=== PATIENT | female | born 1990 | race Caucasian/White ===

== ENCOUNTER 2016-10-01 08:32 | Emergency (ER) | payer MEDICAID ==
[2016-10-01 08:34] VITALS: BMI 24.1
[2016-10-01 08:36] VITALS: BP 106/65; PULSE 74; RESP 19; TEMP 98.1
[2016-10-01 08:44] VITALS: O2SAT 98
[2016-10-01] MEDS ORDERED: Lactated Ringer's 1,000 ML IV SCH (09:15)
[2016-10-01 09:34] LABS: BASO % 0.2 % (0.0-2.0); EOS % 0.3 % (0.0-4.0); HEMATOCRIT 37.7 % (34.0-47.0); LYMPH # 0.3 K/uL (1.0-4.3); LYMPH % 3.4 % (20.0-40.0); MEAN CELL VOLUME 92.7 fl (81.0-99.0); MEAN CORPUSCULAR HEMOGLOBIN 31.6 pg (27.0-31.0); MEAN CORPUSCULAR HGB CONC 34.1 g/dL (33.0-37.0); MONO # 0.4 K/uL (0.0-0.8); MONO % 4.7 % (0.0-10.0); NEUT # 8.4 K/uL (1.8-7.0); NEUT % 91.4 % (50.0-75.0); PLATELET COUNT 217 K/uL (130-400); RED CELL DISTRIBUTION WIDTH 14.3 % (11.5-14.5); WHITE BLOOD COUNT 9.2 K/uL (4.8-10.8)
[2016-10-01 09:51] LABS: URINE BILIRUBIN NEGATIVE (NEGATIVE); URINE BLOOD NEGATIVE (NEGATIVE); URINE COLOR YELLOW (YELLOW); URINE GLUCOSE (UA) NEG (Normal); URINE KETONE TRACE mg/dL (NEGATIVE); URINE LEUKOCYTE ESTERASE NEG Leu/uL (Negative); URINE PROTEIN NEGATIVE (NEGATIVE); URINE UROBILINOGEN 0.2-1.0 mg/dL (0.2-1.0)
[2016-10-01 09:59] LABS: ALB/GLOB RATIO 1.4 (1.0-2.1); ALKALINE PHOSPHATASE 39 U/L (38-126); ALT/SGPT 24 U/L (9-52); AST/SGOT 25 U/L (14-36); BILIRUBIN,TOTAL 0.5 mg/dl (0.2-1.3); BLOOD UREA NITROGEN 10 mg/dl (7-17); CALCIUM 8.6 mg/dL (8.4-10.2); CARBON DIOXIDE 22 mmol/L (22-30); CHLORIDE 102 mmol/L (98-107); GFR AFRICAN-AMERICAN > 60; GLUCOSE,RANDOM 81 mg/dL (65-105); POTASSIUM 3.9 MMOL/L (3.6-5.0); SODIUM 135 mmol/l (132-148); TOTAL PROTEIN 7.4 G/DL (6.3-8.2)
--- NOTE | 2016-10-01 10:02 | ED PDOC ---
HPI: Abdomen Time Seen by Provider: 10/01/16 09:09 Chief Complaint (Nursing): Abdominal Pain Chief Complaint (Provider): Abdominal Pain History Per: Patient History/Exam Limitations: no limitations Onset/Duration Of Symptoms: Days (x1 day) Additional Complaint(s): 26 y/o female who is currently 8 weeks presents to the emergency department with a complaint of nausea, abdominal pain, vomiting (non bloody; 4 episodes) and diarrhea (non bloody; 4 episodes) x1 day. 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 Denies poorly cooked food. Past Medical History Reviewed: Historical Data, Nursing Documentation, Vital Signs Vital Signs: Last Vital Signs Temp 98.1 F 10/01/16 08:35 Pulse 74 10/01/16 08:35 Resp 19 10/01/16 08:35 BP 106/65 10/01/16 08:35 Pulse Ox 98 10/01/16 12:19 - Medical History PMH: No Chronic Diseases - Surgical History Surgical History: No Surg Hx - Family History Family History: States: Unknown Family Hx - Social History Current smoker - smoking cessation education provided: No Alcohol: None Drugs: Denies - Home Medications Home Medications: Ambulatory Orders Medication Instructions Recorded Ondansetron ODT [Zofran ODT] 1 odt PO BID PRN #6 odt 10/01/16 - Allergies Allergies/Adverse Reactions: Allergies Allergy/AdvReac Type Severity Reaction Status Date / Time Penicillins Allergy URTICARIA Verified 10/01/16 08:42 Review of Systems ROS Statement: Except As Marked, All Systems Reviewed And Found Negative Gastrointestinal: Positive for: Vomiting (4 episodes), Abdominal Pain, Diarrhea (4 episodes) Physical Exam - Reviewed Nursing Documentation Reviewed: Yes Vital Signs Reviewed: Yes - Physical Exam Appears: Positive for: Non-toxic, No Acute Distress Head Exam: Positive for: ATRAUMATIC, NORMOCEPHALIC Skin: Positive for: Normal Color, Warm, Dry Cardiovascular/Chest: Positive for: Regular Rate, Rhythm. Negative for: Murmur Respiratory: Positive for: Normal Breath Sounds. Negative for: Accessory Muscle Use, Respiratory Distress Gastrointestinal/Abdominal: Positive for: Normal Exam, Soft. Negative for: Tenderness Extremity: Positive for: Normal ROM Neurologic/Psych: Positive for: Alert, Oriented - Laboratory Results Result Diagrams: 10/01/16 09:26 10/01/16 09:26 - ECG O2 Sat by Pulse Oximetry: 98 (RA) Pulse Ox Interpretation: Normal Medical Decision Making Medical Decision Making: Time: 9:09 Impression: Gastroenteritis Initial plan: --Will hydrate and check labs --Type and Screen Stat --Beta-HCG, Quantitative --COMP Metabolic Panel --ED Urine (POC) --CBC w/ differential --Lactated ringers 1,000 ml IV 1,000 mls/hr --Urinalysis Stat --Revaluation 12:19 PM Pt feels better. Will d/c home. Scribe Attestation: Documented by Nelia Eugene, acting as a scribe for Balbir Ling MD. Provider Scribe Attestation: All medical record entries made by the Scribe were at my direction and personally dictated by me. I have reviewed the chart and agree that the record accurately reflects my personal performance of the history, physical exam, medical decision making, and the department course for this patient. I have also personally directed, reviewed, and agree with the discharge instructions and disposition. Disposition - Clinical Impression Clinical Impression: Gastroenteritis, - Patient ED Disposition Is Patient to be Admitted: No Counseled Patient/Family Regarding: Studies Performed, Diagnosis, Need For Followup, Rx Given - Disposition Disposition: Routine/Home Disposition Time: 12:15 Condition: IMPROVED Additional Instructions: Ms. Panchal, thank you for letting us take care of you today. Return to the ER if your symptoms worsen, or if any problems. Take the medication listed below as prescribed. Follow up with Dr. Gamble next week for a re-evaluation. Prescriptions: Ondansetron ODT [Zofran ODT] 1 odt PO BID PRN #6 odt PRN Reason: Nausea/Vomiting Instructions: Gastroenteritis (ED) Forms: [employer] (Georgian) Print Language: SAUDI ARABIAN - POA Present On Arrival: None
[2016-10-01 10:21] LABS: EOSINOPHIL 2 % (0-7); NEUTROPHIL 90 % (42-75); TOTAL CELLS COUNTED 100
[2016-10-01 10:22] LABS: LARGE PLATELETS PRESENT
[2016-10-01] MEDS ORDERED: Sodium Chloride 0.9% 1,000 ML IV SCH (10:45)
== END 2016-10-01 12:32 | disposition home or self-care (01) ==
LOC: H.ER 08:32
DX: O21.8 Other vomiting complicating pregnancy (principal); O26.899 Other specified pregnancy related conditions, unspecified trimester; R19.7 Diarrhea, unspecified; K52.9 Noninfective gastroenteritis and colitis, unspecified

== ENCOUNTER 2016-10-26 21:02 | Emergency (ER) | payer MEDICAID ==
[2016-10-26 21:02] VITALS: BMI 24.1
[2016-10-26 21:11] VITALS: BP 114/71; PULSE 73; RESP 16; TEMP 98.1; O2SAT 100
[2016-10-26] MEDS ORDERED: Alum-Mag Hydrox-Simethicone Susp (30 mL) PO STA (21:31)
[2016-10-26] MEDS ORDERED: Alum-Mag Hydrox-Simethicone Susp (30 mL) ONE (21:35)
--- NOTE | 2016-10-26 22:21 | ED PDOC ---
HPI: Abdomen Time Seen by Provider: 10/26/16 21:27 Chief Complaint (Nursing): Abdominal Pain Chief Complaint (Provider): Epigastric Pain History Per: Patient Outside of [place] travel?: No Current Symptoms Are (Timing): Still Present Location Of Pain/Discomfort: Epigastric Exacerbating Factors: Food Additional Complaint(s): Lisa Panchal, a 26 year old female, who is 11 weeks presents to the ED with epigastric pain. The patient states the she has been experiencing these symptoms since 0200 and it gets worse when she eats. She reports that she had an US for done and it was normal. Denies nausea, vomiting, vaginal bleeding and vaginal discharge. PMD: Shaik Brie Abnormal Vaginal Bleeding: No Past Medical History Reviewed: Historical Data, Nursing Documentation, Vital Signs Vital Signs: Last Vital Signs Temp 98.1 F 10/26/16 21:09 Pulse 73 10/26/16 21:09 Resp 16 10/26/16 21:09 BP 114/71 10/26/16 21:09 Pulse Ox 100 10/26/16 22:31 - Medical History PMH: No Chronic Diseases - Family History Family History: States: Unknown Family Hx - Home Medications Home Medications: Ambulatory Orders Medication Instructions Recorded Ondansetron ODT [Zofran ODT] 1 odt PO BID PRN #6 odt 10/01/16 Calcium Carbonate/Simethicone 1 each PO DAILY #20 tab.chew 10/26/16 [Maalox Advanced Tab Chew] Famotidine [Pepcid] 20 mg PO BID #20 tab 10/26/16 - Allergies Allergies/Adverse Reactions: Allergies Allergy/AdvReac Type Severity Reaction Status Date / Time Penicillins Allergy URTICARIA Verified 10/26/16 21:09 Review of Systems ROS Statement: Except As Marked, All Systems Reviewed And Found Negative Gastrointestinal: Negative for: Nausea, Vomiting Genitourinary Female: Negative for: Vaginal Discharge, Vaginal Bleeding Physical Exam - Reviewed Nursing Documentation Reviewed: Yes Vital Signs Reviewed: Yes - Physical Exam Appears: Positive for: Non-toxic, No Acute Distress Head Exam: Positive for: ATRAUMATIC, NORMAL INSPECTION, NORMOCEPHALIC Skin: Positive for: Normal Color, Warm, Dry Eye Exam: Positive for: Normal appearance, EOMI, PERRL ENT: Positive for: Normal ENT Inspection Neck: Positive for: Normal, Painless ROM, Supple Cardiovascular/Chest: Positive for: Regular Rate, Rhythm, Chest Non Tender. Negative for: Tachycardia Respiratory: Positive for: Normal Breath Sounds. Negative for: Wheezing, Respiratory Distress Gastrointestinal/Abdominal: Positive for: Normal Exam, Bowel Sounds, Soft. Negative for: Tenderness Back: Positive for: Normal Inspection Extremity: Positive for: Normal ROM. Negative for: Tenderness, Pedal Edema, Deformity, Swelling Neurologic/Psych: Positive for: Alert, Oriented, Gait - ECG O2 Sat by Pulse Oximetry: 100 (RA) Pulse Ox Interpretation: Normal Medical Decision Making Medical Decision Makin:27 Initial Impression: 26 year old female presenting with gastritis during . Initial Plan: * Upreg * Udip * Lidocaine 2% viscous 15ml PO * Maalox Plus 30ml PO * Pepcid 20mg PO 2230: Pt. feeling much improved, no longer c/o of pain. Told to f/u w/ PMD or OB in 1- 2 days. REturn precautions given. Scribe Attestation Documented by Josie Martin acting as a scribe for Gagandeep Anderson MD. Provider Attestation All medical record entries made by the Scribe were at my direction and personally dictated by me. I have reviewed the chart and agree that the record accurately reflects my personal performance of the history, physical exam, medical decision making, and the department course for this patient. I have also personally directed, reviewed, and agree with the discharge instructions and disposition. Disposition - Clinical Impression Clinical Impression: Epigastric pain, Abdominal pain during - Disposition Disposition: Routine/Home Disposition Time: 22:30 Condition: STABLE Additional Instructions: Please followup with your OB-[facility]. Prescriptions: Calcium Carbonate/Simethicone [Maalox Advanced Tab Chew] 1 each PO DAILY #20 tab.chew Famotidine [Pepcid] 20 mg PO BID #20 tab Instructions: Epigastric Pain (ED), Abdominal Pain in (ED)
== END 2016-10-26 23:01 | disposition home or self-care (01) ==
LOC: H.ER 21:02
DX: O26.899 Other specified pregnancy related conditions, unspecified trimester (principal)

== ENCOUNTER 2016-11-17 11:35 | Emergency (ER) | payer MEDICAID ==
[2016-11-17 11:36] VITALS: BMI 24.1
[2016-11-17 11:59] VITALS: BP 110/60; PULSE 74; RESP 16; TEMP 98.4; O2SAT 100
--- NOTE | 2016-11-17 13:06 | ED PDOC ---
HPI: Female Pain Time Seen by Provider: 11/17/16 12:40 Chief Complaint (Nursing): Female Genitourinary Chief Complaint (Provider): r/o demise History Per: Patient Additional Complaint(s): 26 yo female, no PMH, presents to ED with c/o vaginal bleeding and lower abdominal pain since this a.m., was seen by PMD and sent to ED to r/o possible demise. heartbeat was undetectable via doppler in office. A2 Past Medical History Reviewed: Nursing Documentation, Vital Signs Vital Signs: Last Vital Signs Temp 98.4 F 11/17/16 11:58 Pulse 74 11/17/16 11:58 Resp 16 11/17/16 11:58 BP 110/60 11/17/16 11:58 Pulse Ox 100 11/17/16 11:58 - Medical History PMH: No Chronic Diseases - Surgical History Surgical History: No Surg Hx - Family History Family History: States: Unknown Family Hx - Living Arrangements Living Arrangements: With Family - Social History Current smoker - smoking cessation education provided: No Alcohol: None Drugs: Denies - Home Medications Home Medications: Ambulatory Orders Medication Instructions Recorded Ondansetron ODT [Zofran ODT] 1 odt PO BID PRN #6 odt 10/01/16 Calcium Carbonate/Simethicone 1 each PO DAILY #20 tab.chew 10/26/16 [Maalox Advanced Tab Chew] Famotidine [Pepcid] 20 mg PO BID #20 tab 10/26/16 - Allergies Allergies/Adverse Reactions: Allergies Allergy/AdvReac Type Severity Reaction Status Date / Time Penicillins Allergy URTICARIA Verified 11/17/16 11:54 Review of Systems ROS Statement: Except As Marked, All Systems Reviewed And Found Negative Physical Exam - Reviewed Nursing Documentation Reviewed: Yes Vital Signs Reviewed: Yes - Physical Exam Appears: Positive for: Well, Non-toxic, No Acute Distress Head Exam: Positive for: ATRAUMATIC, NORMAL INSPECTION, NORMOCEPHALIC Skin: Positive for: Normal Color, Warm, DRY Eye Exam: Positive for: EOMI, Normal appearance, PERRL ENT: Positive for: Normal ENT Inspection Neck: Positive for: Normal, Painless ROM Cardiovascular/Chest: Positive for: Regular Rate, Rhythm Respiratory: Positive for: CNT, Normal Breath Sounds Gastrointestinal/Abdominal: Positive for: Normal Exam, Bowel Sounds, Soft Back: Positive for: Normal Inspection Extremity: Positive for: Normal ROM Neurologic/Psych: Positive for: Alert, Oriented - Laboratory Results Result Diagrams: 11/17/16 13:20 - ECG O2 Sat by Pulse Oximetry: 100 Medical Decision Making Medical Decision Making: PROCEDURE: ultrasound HISTORY: r/o heterotopic COMPARISON: None available. TECHNIQUE: TStandard protocol for this study/examination. FINDINGS: LMP: 09/26/2016 Prior examinations from the current : TECHNIQUE: Real-time 2D imaging, duplex and color Doppler. FINDINGS: Cardiac activity: Present Rate: 136 BPM Measurements: Norrie rump length: 0.69 cm Gestational age based on CRL 6 weeks 4 days Gestational age based on gestational sac measurement 6 weeks 4 days Gestational age derived from LMP: 7 weeks 3 days SHAWN based on LMP: 07/03/2017 SHAWN based on biometry: 07/09/2017 Gestational concordance documented Yolk sac identified Uterus: Unremarkable. No Cervical abnormalities: Negative examination for cervical dilatation or effacement. Cervical length 3.00 cm Subchorionic hemorrhage: None Maternal uterus 4.1 x 5.3 x 7.2 cm. Unremarkable ADNEXA: Right: 3.1 x 1.7 cm. Multiple subcentimeter follicles. Normal Doppler arterial waveform documented. Left: 2.7 x 3 cm. Solid mass within the left ovary 1.9 x 2 cm. This has a hypervascular rim. Concurrent ectopic gestation should be considered. Incidental finding(s):Para adnexal cyst likely corpus luteum cyst 1.8 x 1.5 cm Normal Doppler arterial waveform documented Fluid in the cul-de-sac: None. IMPRESSION: 1. 6 weeks 4 days live intrauterine gestation. Gestational concordance documented. 2. Left adnexal cyst likely corpus luteum cyst. 3. Solid hypervascular mass left adnexa. Concurrent ectopic gestation is possible. This measures approximately 2 cm. The presence of a concomitant ectopic gestation should be considered in the appropriate clinical setting. Disposition - Clinical Impression Clinical Impression: Vaginal bleeding in - Patient ED Disposition Is Patient to be Admitted: No - Disposition Disposition: Routine/Home Disposition Time: 18:52 Condition: STABLE Instructions: Threatened Miscarriage (ED) - POA Present On Arrival: None
[2016-11-17 14:02] LABS: BASO % 0.3 % (0.0-2.0); EOS % 0.3 % (0.0-4.0); HEMOGLOBIN 12.4 g/dL (12.0-16.0); LYMPH # 1.2 K/uL (1.0-4.3); LYMPH % 12.9 % (20.0-40.0); MEAN CELL VOLUME 94.3 fl (81.0-99.0); MEAN CORPUSCULAR HEMOGLOBIN 31.5 pg (27.0-31.0); MEAN CORPUSCULAR HGB CONC 33.4 g/dL (33.0-37.0); MEAN PLATELET VOLUME 8.8 fl (7.2-11.7); MONO # 0.6 K/uL (0.0-0.8); MONO % 6.2 % (0.0-10.0); NEUT # 7.8 K/uL (1.8-7.0); NEUT % 80.3 % (50.0-75.0); RBC 3.93 Mil/uL (3.80-5.20); WHITE BLOOD COUNT 9.7 K/uL (4.8-10.8)
[2016-11-17 14:11] LABS: SQUAMOUS EPITHIAL 1 /hpf (0-5); URINE BACTERIA RARE (<OCC); URINE BILIRUBIN NEGATIVE (NEGATIVE); URINE BLOOD NEGATIVE (NEGATIVE); URINE CLARITY SLIGHTY-CLOUDY (Clear); URINE COLOR YELLOW (YELLOW); URINE GLUCOSE (UA) NEG (Normal); URINE LEUKOCYTE ESTERASE NEG Leu/uL (Negative); URINE NITRATE NEGATIVE (NEGATIVE); URINE PROTEIN NEGATIVE (NEGATIVE); URINE UROBILINOGEN 0.2-1.0 mg/dL (0.2-1.0)
--- NOTE | 2016-11-17 16:23 | US ---
PROCEDURE: Limited ultrasound HISTORY: heartbeat undetectable in clinic, R/o demise COMPARISON: None available. TECHNIQUE: Standard protocol for this study/examination. FINDINGS: Variable presentation. Placental location: Posterior, low lying covering the cervical os. Placenta. No evidence of abruption Gestational age derived from LMP 14 weeks 4 days Gestational age derived from the following biometric parameters 14 weeks 6 days . Biparietal diameter 2.90 cm Head circumference cm Abdominal circumference 9.758.37 cm Femur length 1.56 cm Estimated weight 102.9 g Calculated cardiac rate 142 beats per min. Closed cervix measuring 4.01 cm SHAWN based on LMP: 05/14/2017 SHAWN based on biometry: 05/12/2017 IMPRESSION: For 2 weeks 6 days live intrauterine gestation. Gestational concordance documented. Posterior placenta a covering the cervical os. No evidence of abruption.
== END 2016-11-17 17:15 | disposition home or self-care (01) ==
LOC: H.ER 11:35
DX: O20.8 Other hemorrhage in early pregnancy (principal); Z3A.01 Less than 8 weeks gestation of pregnancy; Z88.0 Allergy status to penicillin; N83.12 Corpus luteum cyst of left ovary

== ENCOUNTER 2017-01-31 09:04 | Emergency (ER) | payer MEDICAID ==
[2017-01-31 09:04] VITALS: BMI 24.1
[2017-01-31 09:30] VITALS: BP 117/67; RESP 18; TEMP 98.1; O2SAT 99
[2017-01-31] MEDS ORDERED: Albuterol 0.083% Inhal Sol (2.5 mg/3 mL) UD INH STA (09:42)
--- NOTE | 2017-01-31 09:55 | ED PDOC ---
HPI: CCC, URI, Sore Throat Time Seen by Provider: 01/31/17 09:17 Chief Complaint (Nursing): Cough, Cold, Congestion Chief Complaint (Provider): Cough, Cold, Congestion History Per: Patient History/Exam Limitations: no limitations Onset/Duration Of Symptoms: Days (x1) Current Symptoms Are (Timing): Still Present Additional Complaint(s): Lisa Panchal is a 26 year old female, 25 weeks , presenting to the ED for an evaluation of a runny nose, nasal congestion, cough with yellow sputum and a fever. The patient states her fever was 101 yesterday but normal temperature today. She also states associated chest tightness. PMD: Stefan Vigil MD Past Medical History Reviewed: Historical Data, Nursing Documentation, Vital Signs Vital Signs: Last Vital Signs Temp 98.1 F 01/31/17 09:22 Pulse 90 01/31/17 10:01 Resp 18 01/31/17 09:22 BP 117/67 01/31/17 09:22 Pulse Ox 99 01/31/17 10:01 - Medical History PMH: No Chronic Diseases - Family History Family History: States: Unknown Family Hx - Social History Current smoker - smoking cessation education provided: No Ex-Smoker (has not smoked in the last 12 months): No Alcohol: None Drugs: Denies - Home Medications Home Medications: Ambulatory Orders Medication Instructions Recorded Ondansetron ODT [Zofran ODT] 1 odt PO BID PRN #6 odt 10/01/16 Calcium Carbonate/Simethicone 1 each PO DAILY #20 tab.chew 10/26/16 [Maalox Advanced Tab Chew] Famotidine [Pepcid] 20 mg PO BID #20 tab 10/26/16 Albuterol 0.083% [Albuterol 0.083% 3 ml IH Q6H PRN #30 neb 01/31/17 Inhal Lissa (2.5 mg/3 ml) UD] Azithromycin [Zithromax] 250 mg PO DAILY #4 tab 01/31/17 Nebulizer [Compact Compressor 1 dev XX PRN PRN #1 dev 01/31/17 Nebulizer] - Allergies Allergies/Adverse Reactions: Allergies Allergy/AdvReac Type Severity Reaction Status Date / Time Penicillins Allergy URTICARIA Verified 11/17/16 11:54 Review of Systems ROS Statement: Except As Marked, All Systems Reviewed And Found Negative Constitutional: Positive for: Fever ENT: Positive for: Nose Discharge, Nose Congestion Respiratory: Positive for: Cough (with yellow sputum), Other (chest tightness) Physical Exam - Reviewed Nursing Documentation Reviewed: Yes Vital Signs Reviewed: Yes - Physical Exam Appears: Positive for: Non-toxic, No Acute Distress Head Exam: Positive for: ATRAUMATIC, NORMOCEPHALIC Skin: Positive for: Normal Color, Warm, Dry Eye Exam: Positive for: Normal appearance ENT: Positive for: Nasal Congestion Neck: Positive for: Normal Cardiovascular/Chest: Positive for: Regular Rate, Rhythm, Chest Non Tender. Negative for: Murmur Respiratory: Positive for: Normal Breath Sounds. Negative for: Respiratory Distress Gastrointestinal/Abdominal: Negative for: Soft (gravid), Tenderness Back: Positive for: Normal Inspection Extremity: Negative for: Calf Tenderness, Swelling (no leg swelling) Neurologic/Psych: Positive for: Alert, Oriented (x3), Other (speaking full sentences ) - ECG ECG: Positive for: Interpreted By Me, Viewed By Me ECG Rhythm: Positive for: Sinus Rhythm (normal ). Negative for: ST/T Changes Rate: 90 O2 Sat by Pulse Oximetry: 99 (RA) Pulse Ox Interpretation: Normal Medical Decision Making Medical Decision Making: Time: 09:17 Impression: URI Plan: * ED EKG * Peak Flow Pre/Post Treatment * Albuterol 0.083% Inhal Lissa (2.5 mg/3ml) UD 2.5 mg INH * Zithromax 500 mg PO * Reevaluation Discussed with pt benefits of obtaining a chest X-ray. Pt states she does not want a chest Xray. Scribe Attestation: Documented by Aura Snider, acting as a scribe for Kathleen Gaona MD. Provider Scribe Attestation: All medical record entries made by the Scribe were at my direction and personally dictated by me. I have reviewed the chart and agree that the record accurately reflects my personal performance of the history, physical exam, medical decision making, and the department course for this patient. I have also personally directed, reviewed, and agree with the discharge instructions and disposition. Disposition - Clinical Impression Clinical Impression: URI (upper respiratory infection) - Disposition Disposition Time: 12:30 Condition: STABLE Additional Instructions: FOLLOW-UP WITH YOUR OB-[facility]UC[facility] SPECIALIST WITHIN 2 DAYS FOR REEVALUATION. Prescriptions: Albuterol 0.083% [Albuterol 0.083% Inhal Lissa (2.5 mg/3 ml) UD] 3 ml IH Q6H PRN # 30 neb PRN Reason: Shortness Of Breath Azithromycin [Zithromax] 250 mg PO DAILY #4 tab Nebulizer [Compact Compressor Nebulizer] 1 dev XX PRN PRN #1 dev PRN Reason: Shortness Of Breath Instructions: Upper Respiratory Infection (ED) Forms: [email or web address] (Bulgarian)
[2017-01-31 10:01] VITALS: PULSE 90
[2017-01-31] MEDS ORDERED: Albuterol 0.083% Inhal Sol (2.5 mg/3 mL) UD ONE (10:10)
--- NOTE | 2017-02-01 16:50 | CARD ---
APPROVED REPORT EKG Measurement Heart [id number] <Conclusion> Normal sinus rhythm with sinus arrhythmia Normal ECG
== END 2017-01-31 13:23 | disposition home or self-care (01) ==
LOC: H.ER 09:04
DX: J06.9 Acute upper respiratory infection, unspecified (principal); Z33.1 Pregnant state, incidental

== ENCOUNTER → 2017-05-05 | Emergency (ER) | payer MEDICAID ==
--- NOTE | 2017-05-05 12:01 | OBDCSUM ---
Datetime: 05/05/2017 12:00 Discharged to, Provider: Home Follow up at, Provider: [facility] Disch Instr Activity: Normal activity Disch Instr Diet: Regular Discharge Instructions, Provider: Routine instructions given Discharge Diagnosis, Provider: False Labor - Undelivered Follow up in weeks, Provider: 1d Disch Referrals: None Contraception discussed, Prov: Yes Datetime: 05/05/2017 11:58 Follow up at, Provider: [facility] Disch Instr Activity: Normal activity Disch Instr Diet: Regular Discharge Time: 05/05/2017 12:05 Follow up in weeks, Provider: Tomorrow (regular appointment) Disch Referrals: None
--- NOTE | 2017-05-05 12:02 | OBHP ---
Datetime: 05/05/2017 11:56 IP Adm Impression: Term, intrauterine ; No Active Labor IP Chief Complaint Other: passed mucous plug IP Admit Plan: Discharge home Admit Comment, IP Provider: 26yo IUP at 38w (EDC May 14) c/o passing mucous plug yesterday a nd some spotting since. Some CTX pain. No SROM; +FM PNC: [facility] Dr Jamila Pastor - no chart seen just labs/sono cofnriming dates PMH: Denies PSH: denies All: PCN hives POBH: x 1 PGYNH: ni STD A; IUP at 38w not in labor NO VB noted PLAN discharge home f/u [facility] as scheduled labour instructions Extremities - PN: Normal Back - PN: Normal Lungs - PN: Normal Heart - PN: Normal Neurologic - PN: Normal HEENT - PN: Normal General - PN: Normal Presentation-Admit: Vertex IP Fetus A Comments: sono ceph FHR - Baseline A Provider: 120 Membranes, Provider: Intact Contraction Comments Provider: occ Pool Provider: Negative EGA AdmitDate IP: 38.5 Vital Signs Provider: Reviewed; Within Normal Limits IP Chief Complaint: Uterine contractions NICHD Variability Prov Fetus A: Moderate 6-25bpm NICHD Accel Fetus A IP Provider: [id number] FHR Category Provider Fetus A: Category I NICHD Decel Fetus A IP Provider: None Dilatation, Provider: 0 Effacement, Provider: 0 Genitourinary Exam: Normal
== END | disposition home or self-care (01) ==
LOC: H.EROB2 11:16
DX: O47.1 False labor at or after 37 completed weeks of gestation (principal); Z3A.38 38 weeks gestation of pregnancy; O26.93 Pregnancy related conditions, unspecified, third trimester; R10.2 Pelvic and perineal pain

== ENCOUNTER 2017-05-07 23:44 | Emergency (ER) | payer MEDICAID ==
--- NOTE | 2017-05-08 00:19 | OBDCSUM ---
Datetime: 05/08/2017 00:13 Discharged to, Provider: Home Follow up at, Provider: [facility] Disch Instr Activity: Normal activity Disch Instr Diet: Regular Discharge Instructions, Provider: Routine instructions given Discharge Diagnosis, Provider: False Labor - Undelivered Discharge Time: 05/08/2017 00:13 Follow up in weeks, Provider: 05/13/2017 Disch Referrals: None Contraception discussed, Prov: Yes Disch Activity Restrictions: No lifting; Minimize stair-climbing
--- NOTE | 2017-05-08 00:19 | OBHP ---
Datetime: 05/08/2017 00:15 IP Adm Impression: Term, intrauterine IP Admit Plan: Observation/Evaluation; Discharge home Admit Comment, IP Provider: Patient is a @ 39.1 wks with vaginal spotting and back pain. Den ies leaking, +FM. Previous , no antepartum/medical problems. On exam, pt is 50/-3. [id number] mod martell, +accels, no decels. TOCO = ctxning q 2-3 mins. Patient not in active labor. Will discharge home, labor precautions given Pelvic Type - PN: Adequate Extremities - PN: Normal Abdomen - PN: Normal Back - PN: Normal Breast - PN: Normal Lungs - PN: Normal Heart - PN: Normal Thyroid - PN: Normal Neurologic - PN: Normal HEENT - PN: Normal General - PN: Normal FHR - Baseline A Provider: 125 Contraction Comments Provider: q 2 mins EGA AdmitDate IP: 39.0 Vital Signs Provider: Reviewed; Within Normal Limits IP Chief Complaint: Uterine contractions NICHD Variability Prov Fetus A: Moderate 6-25bpm NICHD Accel Fetus A IP Provider: [id number] NICHD Decel Fetus A IP Provider: None Dilatation, Provider: 1 Effacement, Provider: 50 Station, Provider: -3 Genitourinary Exam: Normal DTRs - PN: Normal
[2017-05-08 04:44] VITALS: BP 123/73; PULSE 82
== END 2017-05-08 00:30 | disposition home or self-care (01) ==
LOC: H.EROB2 23:44
DX: O47.1 False labor at or after 37 completed weeks of gestation (principal); Z3A.39 39 weeks gestation of pregnancy; O26.93 Pregnancy related conditions, unspecified, third trimester; R10.2 Pelvic and perineal pain

== ENCOUNTER 2017-05-08 06:32 | Inpatient (IN) | payer MEDICAID ==
[2017-05-08 07:13] VITALS: BMI 30.2
--- NOTE | 2017-05-08 07:22 | OBADHP ---
Datetime: 05/08/2017 07:16 Admit Comment, IP Provider: Patient is a @ 39.1 wks with uterine contractions, was a rule ou t labor earlier in the evening, sent home at 1cm. Patient denies antepartum issues, no medical proble ms/surgical problems, previous VE=/-2 [id number] mod martell, +accels, no decels TOCO=ctxning q 2-4 mins A/P 1. admit patient to labor and delivery 2. IVF, CBC, CEFM and TOCO 3. Patient would like epidural 4. Re-evaluate as needed Pelvic Type - PN: Adequate Extremities - PN: Normal Abdomen - PN: Normal Back - PN: Normal Breast - PN: Normal Lungs - PN: Normal Heart - PN: Normal Thyroid - PN: Normal Neurologic - PN: Normal HEENT - PN: Normal General - PN: Normal FHR - Baseline A Provider: 125 Contraction Comments Provider: 2-4 Vital Signs Provider: Reviewed; Within Normal Limits IP Chief Complaint: Uterine contractions NICHD Variability Prov Fetus A: Marked >25bpm NICHD Accel Fetus A IP Provider: [id number] NICHD Decel Fetus A IP Provider: None Dilatation, Provider: 4 Effacement, Provider: 70 Station, Provider: -2 Genitourinary Exam: Normal DTRs - PN: Normal EGA AdmitDate IP: 39.1 IP Adm Impression: Term, intrauterine IP Admit Plan: Admit to unit Datetime: 05/05/2017 11:56 IP Chief Complaint Other: passed mucous plug Presentation-Admit: Vertex IP Fetus A Comments: sono ceph Membranes, Provider: Intact Pool Provider: Negative FHR Category Provider Fetus A: Category I
[2017-05-08] MEDS: Lactated Ringer's 1,000 ML IV SCH ×2 (08:21→09:21)
[2017-05-08 09:13] LABS: BASO % 0.1 % (0.0-2.0); EOS % 0.1 % (0.0-4.0); HEMATOCRIT 39.3 % (34.0-47.0); LYMPH # 1.1 K/uL (1.0-4.3); LYMPH % 8.6 % (20.0-40.0); MEAN CELL VOLUME 93.3 fl (81.0-99.0); MEAN CORPUSCULAR HEMOGLOBIN 31.1 pg (27.0-31.0); MEAN CORPUSCULAR HGB CONC 33.3 g/dL (33.0-37.0); MONO # 0.8 K/uL (0.0-0.8); MONO % 6.8 % (0.0-10.0); NEUT # 10.4 K/uL (1.8-7.0); NEUT % 84.4 % (50.0-75.0); PLATELET COUNT 210 K/uL (130-400); RED CELL DISTRIBUTION WIDTH 14.3 % (11.5-14.5); WHITE BLOOD COUNT 12.3 K/uL (4.8-10.8)
[2017-05-08] MEDS ORDERED: Oxytocin 30 UNITS in Sodium Chloride 0.9% 500 ML IV SCH ×3 (09:15→16:30)
[2017-05-08] MEDS ORDERED: Fentanyl/Bupivacaine HCl 250 ML EPI ONE (09:33)
[2017-05-08 10:36] LABS: NEUTROPHIL 83 % (42-75); TOTAL CELLS COUNTED 100
[2017-05-08] MEDS ORDERED: Lactated Ringer's 500 ML IV SCH (11:15)
[2017-05-08] MEDS ORDERED: Lactated Ringer's 1,000 ML IV SCH (11:15)
--- NOTE | 2017-05-08 11:29 | OBPN ---
Datetime: 05/08/2017 11:25 Amniotic Fluid Color, Provider: Clear FHR - Baseline A Provider: 140 IP Progress Note Comment: s: moderate discomfort w/ ctxs; declines epidural o: no cerv change i:39.1wk labor p: arom- clear nitrous oxide for pain FHR Category Provider Fetus A: Category I NICHD Variability Prov Fetus A: Moderate 6-25bpm Dilatation, Provider: 5 Effacement, Provider: 80 Station, Provider: -2 NICHD Decel Fetus A IP Provider: None Datetime: 05/08/2017 07:16 Contraction Comments Provider: 2-4 Vital Signs Provider: Reviewed; Within Normal Limits NICHD Accel Fetus A IP Provider: [id number] Datetime: 05/05/2017 11:56 Pool Provider: Negative Membranes, Provider: Intact IP Fetus A Comments: sono ceph Presentation-Admit: Vertex
[2017-05-08] MEDS ORDERED: Lidocaine 2% Inj (20ml) ONE (15:15)
[2017-05-08] MEDS ORDERED: Benzocaine/Menthol SPRAY TOP PRN ×2 (16:16→19:48)
[2017-05-08 20:02] VITALS: O2SAT 100
--- NOTE | 2017-05-08 23:08 | OBDS ---
DELIVERY PERSONNEL Delivery Doctor: Samir Ibarra MD Drying Unit Felting Machine Operator: [facility] Anesthesiologist: Cristofer Devries MD Resident: Dr. Kelley PGY1 MATERNAL INFORMATION Delivery Anesthesia: Epidural Medications in Delivery: Pitocin 30 units in 500 mls/Lidocaine Estimated Blood Loss (ml): 200 Placenta Cultured: No Maternal Complications: None RN Comments: Dr. Lackey present at the delivery. Provider Comments: Delivery Note: Gestational age: 39.1wks of viable female , weight 6lb 0.2ounces, Apgars 9/9, no nuchal cord, mouth and nose wa s suctioned, cord was clamped and cut, cord blood obtained, placenta delivered spontaneously, fundus firm, no lacerations, YBS=832ms, pt tolerated procedure well. LABOR SUMMARY EDC: 05/14/2017 00:00 No. Babies in Womb: 1 Attempted: No Labor Anesthesia: Epidural LABOR INFORMATION Reason for Induction: Not Applicable Onset of Labor: 05/08/2017 00:00 Complete Dilatation: 05/08/2017 15:00 Oxytocin: Augmentation Group B Beta Strep: Negative Antibiotics # of Doses: N/A Antibiotics Time of Last Dose: N/A Steroids Given: None Reason Steroids Not Administered: Not Applicable MEMBRANES Membranes Rupture Method: Artificial Rupture of Membranes: 05/08/2017 15:35 Length of Rupture (hrs): 0.28 Amniotic Fluid Color: Clear Amniotic Fluid Amount: Scant Amniotic Fluid Odor: Normal STAGES OF LABOR Stage 1 hrs: 15 Stage 1 min: 0 Stage 2 hrs: 0 Stage 2 min: 52 Stage 3 hrs: 0 Stage 3 min: 8 Total Time in Labor hrs: 16 Total Time in Labor min: 0 VAGINAL DELIVERY Episiotomy: None Laceration Extension: N/A Laceration Type: None Laceration Repair: Not Applicable Initial Vag Sponge Count: 5 Final Vag Sponge Count: 5 Initial Vag Sharps Count: 0 Final Vag Sharps Count: 0 Sponge Count Correct: Yes Count Comment: MD confirmed. Count correct BABY A INFORMATION Infant Delivery Date/Time: 05/08/2017 15:52 Method of Delivery: Vaginal Born in Route : No : N/A Forceps: N/A Vacuum Extraction: N/A Shoulder Dystocia : No SHOULDER DYSTOCIA BABY A Infant Delivery Date/Time: 05/08/2017 15:52 PRESENTATION/POSITION BABY A Presentation: Cephalic Cephalic Presentation: Vertex Breech Presentation: N/A PLACENTA INFORMATION BABY A Placenta Delivery Time : 05/08/2017 16:00 Placenta Method of Delivery: Spontaneous Placenta Status: Delivered SCORES BABY A Heart Rate 1 min: >100 bpm Resp Effort 1 min: Good Cry Reflex Irritability 1 min: Cough or Sneeze or Pulls Away Muscle Tone 1 min: Active Motion Color 1 min: Body [place], Extremities Blue Resuscitation Effort 1 min: N/A SCORE 1 MIN: 9 Heart Rate 5 min: >100 bpm Resp Effort 5 min: Good Cry Reflex Irritability 5 min: Cough or Sneeze or Pulls Away Muscle Tone 5 min: Active Motion Color 5 min: Body [place], Extremities Blue Resuscitation Effort 5 min: N/A SCORE 5 MIN: 9 INFANT INFORMATION BABY A Gestational Age at Delivery: 39.1 Gestational Status: Term Infant Outcome : Liveborn Infant Condition : Stable Infant Sex: Female IDENTIFICATION/MEDS BABY A ID Band Number: [id number] ID Band Location: Left Leg; Left Arm WEIGHT/LENGTH BABY A Infant Birthweight (gms): 2730 Infant Weight (lb): 6 Infant Weight (oz): 0 CORD INFORMATION BABY A No. Cord Vessels: 3 Nuchal Cord : N/A Nuchal Cord Other: N/A True Knot: N/A Infant Cord pH Baby Arterial: N/A Infant Cord pH Baby Venous: N/A Cord Blood Taken: Yes Banking/Donate Info: N/A Infant Suction: Mouth; Nose ASSESSMENT BABY A Infant Complications: Multiple Late Decels Physical Findings at Delivery: Within Normal Limits Respirations: Appears Normal Aircraft Instrument Mechanic/ALS Called : No Care By: Dr. Lackey/Nasreen DIAZ Transferred To: Remains with Mother
[2017-05-09 06:17] LABS: HEMATOCRIT 34.6 % (34.0-47.0); MEAN CELL VOLUME 93.2 fl (81.0-99.0); MEAN CORPUSCULAR HEMOGLOBIN 31.7 pg (27.0-31.0); WHITE BLOOD COUNT 13.4 K/uL (4.8-10.8)
[2017-05-09] MEDS: Multivitamin With Minerals Tab PO SCH (08:12)
[2017-05-09] MEDS ORDERED: Multivitamin With Minerals Tab PO SCH (09:00)
--- NOTE | 2017-05-09 11:43 | OBPPN ---
Datetime: 05/09/2017 07:30 PP Pain Prov: Within normal limits PP Nausea Prov: Denies PP Flatus Prov: Yes PP BM Prov: No PP Heart Prov: Normal PP Lungs Prov: Normal PP Abdomen/Uterus Prov: Normal PP Lochia Prov: Normal PP Vulva/Perineum Prov: Not Done PP CVA Tenderness Prov: Normal PP Extremities Prov: Normal PP C/S Incision Prov: Not Applicable PP Progress Prov: Normal PP Impression Prov: Normal progression PP Plan Prov: Continue present management PP Progress Note Prov: 26 y/o F now on PPD1. Pt had a on 05/08 with NO complications. Pt reports feeling well. No acute events overnight. Pt denies pain. Pt urinating and ambulating witho ut difficulties. Pt is passing gasses but NO bowel movement yet. Pt afebrile and tolerating PO. Lochi a is less than menses. Pt is providing formula to only. Pt denies fever, headache, visual dis turbances, CP, SOB, N/V or pruritus. PE Gen: Pt resting comfortably on bed, AAOx3, not in acute distress. Lungs: CTA B/L. No W/R/R. CV: S1 S2 present, regular rhythm. Abd: BS+, soft, fundus of uterus firm and bellow umbilicus. Ext: no edema, neg Magan's sign, non-tender calves. NEURO/PSYCH: no grossly focal deficit, preserved affect and mood. A/P: 26 y/o F on PPD 2, recovering well. -Continue medical management - and ambulation encouraged. Case discussed with OB business continuity director. Pao PGY-1. Addendum by Dr. Sullivan: I have evaluated the patient independently and I agree with the above IP PP Procedures: None Vital Signs Provider PP: Reviewed
[2017-05-10] MEDS: Multivitamin With Minerals Tab PO SCH (10:18)
[2017-05-10 20:40] VITALS: BP 126/76; PULSE 80; RESP 20; TEMP 98.4
--- NOTE | 2017-05-11 11:02 | OBPPN ---
Datetime: 05/10/2017 08:35 PP Pain Prov: Within normal limits PP Nausea Prov: Denies PP Flatus Prov: Yes PP BM Prov: Yes PP Heart Prov: Normal PP Lungs Prov: Normal PP Abdomen/Uterus Prov: Normal PP Lochia Prov: Normal PP CVA Tenderness Prov: Normal PP Extremities Prov: Normal PP Impression Prov: Normal progression PP Plan Prov: Discharge PP Progress Note Prov: 26 y/o F now on PPD2. Pt had a on 05/08 with NO complications. Pt reports feeling well. No acute events overnight. Pt denies pain. Pt urinating and ambulating witho ut difficulties. Pt is passing gasses and had bowel movement. Pt afebrile and tolerating PO. Lochia i s less than menses. Pt is and providing formula to . Pt denies fever, headache, visual disturbances, CP, SOB, N/V or pruritus. PE Gen: Pt resting comfortably on bed, AAOx3, not in acute distress. Lungs: CTA B/L. No W/R/R. CV: S1 S2 present, regular rhythm. Abd: BS+, soft, fundus of uterus firm and bellow umbilicus. Ext: no edema, neg Magan's sign, non-tender calves. NEURO/PSYCH: no grossly focal deficit, preserved affect and mood. A/P: 26 y/o F on PPD 2, recovering well. -Will discharge pt home today. -Encourage . -Continue PNV 1 tab PO daily. -Ibuprofen 600mg PO PRN for moderate/severe pain. -Ambulate with caution, no heavy lifting, nothing per vagina for 6 weeks. -If excessive bleeding, intolerable pain or fever despite medication, go to ER. - F/U with clinic and within 4-6 weeks for post- evaluation. Case discussed with OB finance and administration manager. Pao PGY-1. We attending addendum: Patient seen and examined by me. Agree with both assessment plan. IP PP Procedures: None Vital Signs Provider PP: Reviewed
== END 2017-05-10 15:20 | disposition home or self-care (01) | DRG 373 ==
LOC: H.EROB2 06:32 → H.L&D 07:13 → H.OB/GYN 20:20
PROVIDERS: ADMIT Obstetrics & Gynecology; ATTEND Obstetrics & Gynecology
PROC: 10E0XZZ Delivery of Products of Conception, External Approach (ICD-10-PCS; principal; 2017-05-08)
PROC: 10907ZC Drainage of Amniotic Fluid, Therapeutic from Products of Conception, Via Natural or Artificial Opening (ICD-10-PCS; 2017-05-08)
PROC: 4A1HXCZ Monitoring of Products of Conception, Cardiac Rate, External Approach (ICD-10-PCS; 2017-05-08)
DX: O76 Abnormality in fetal heart rate and rhythm complicating labor and delivery (principal); Z37.0 Single live birth; Z3A.39 39 weeks gestation of pregnancy; Z88.0 Allergy status to penicillin

== ENCOUNTER 2018-04-25 17:57 | Emergency (ER) | payer BC, MEDICAID ==
[2018-04-25 17:57] VITALS: BMI 30.2
[2018-04-25 18:17] VITALS: RESP 16
[2018-04-25] MEDS ORDERED: Lactated Ringer's 1,000 ML IV STA (18:45)
[2018-04-25 19:09] LABS: BASO % 0.7 % (0.0-2.0); EOS # 0.1 K/uL (0.0-0.7); EOS % 0.7 % (0.0-4.0); HEMOGLOBIN 12.7 g/dL (12.0-16.0); LYMPH # 1.3 K/uL (1.0-4.3); LYMPH % 18.1 % (20.0-40.0); MEAN CELL VOLUME 92.7 fl (81.0-99.0); MEAN CORPUSCULAR HEMOGLOBIN 30.6 pg (27.0-31.0); MEAN PLATELET VOLUME 8.4 fl (7.2-11.7); MONO # 0.5 K/uL (0.0-0.8); MONO % 7.2 % (0.0-10.0); NEUT # 5.2 K/uL (1.8-7.0); NEUT % 73.3 % (50.0-75.0); NRBC % 0.1 % (0.0-0.0); RBC 4.15 Mil/uL (3.80-5.20); RED CELL DISTRIBUTION WIDTH 13.8 % (11.5-14.5); WHITE BLOOD COUNT 7.1 K/uL (4.8-10.8)
[2018-04-25 19:21] LABS: ALB/GLOB RATIO 1.2 (1.0-2.1); ALBUMIN 4.2 g/dL (3.5-5.0); ALT/SGPT 23 U/L (9-52); AST/SGOT 25 U/L (14-36); BLOOD UREA NITROGEN 11 mg/dl (7-17); CALCIUM 8.5 mg/dL (8.4-10.2); GFR NON-AFRICAN AMERICAN > 60
--- NOTE | 2018-04-25 19:34 | ED PDOC ---
HPI: General Adult Time Seen by Provider: 04/25/18 18:28 Chief Complaint (Nursing): Dizziness/Lightheaded Chief Complaint (Provider): Lightheaded History Per: Patient History/Exam Limitations: no limitations Onset/Duration Of Symptoms: Days (x3) Current Symptoms Are (Timing): Still Present Additional Complaint(s): 27 year old female presents to the ED for evaluation of lightheadedness for three days associated with generalized weakness. Patient reports that last night she woke up suddenly with a headache and nausea, vomiting one time non-bilious, non-bloody. Otherwise denies focal weakness, blurry vision, chest pain, shortness of breath, and URI symptoms. Today she presents for the persistent lightheadedness and nausea. PMD: Shaik Baird Past Medical History Reviewed: Historical Data, Nursing Documentation, Vital Signs Vital Signs: Last Vital Signs Temp 98.2 F 04/25/18 18:14 Pulse 74 04/25/18 18:14 Resp 16 04/25/18 18:14 BP 125/78 04/25/18 18:14 Pulse Ox 97 04/25/18 18:14 - Medical History PMH: No Chronic Diseases - Surgical History Surgical History: No Surg Hx - Family History Family History: States: No Known Family Hx - Social History Current smoker - smoking cessation education provided: No Alcohol: None Drugs: Denies - Home Medications Home Medications: Ambulatory Orders Medication Instructions Recorded Calcium Carbonate/Simethicone 1 each PO DAILY #20 tab.chew 10/26/16 [Maalox Advanced Tab Chew] Famotidine [Pepcid] 20 mg PO BID #20 tab 10/26/16 Nebulizer [Compact Compressor 1 dev XX PRN PRN #1 dev 01/31/17 Nebulizer] Ibuprofen [Motrin Tab] 600 mg PO Q6 PRN #30 tab 05/10/17 - Allergies Allergies/Adverse Reactions: Allergies Allergy/AdvReac Type Severity Reaction Status Date / Time Penicillins Allergy URTICARIA Verified 11/17/16 11:54 Review of Systems ROS Statement: Except As Marked, All Systems Reviewed And Found Negative Constitutional: Positive for: Weakness (generalized). Negative for: Fever Eyes: Negative for: Other (blurry vision) Cardiovascular: Positive for: Light Headedness. Negative for: Chest Pain Respiratory: Negative for: Shortness of Breath, Other (URI symptoms) Gastrointestinal: Positive for: Nausea, Vomiting (x1 episode non-bloody non- bilious) Neurological: Positive for: Headache. Negative for: Weakness (focal) Physical Exam - Reviewed Nursing Documentation Reviewed: Yes Vital Signs Reviewed: Yes - Physical Exam Appears: Positive for: No Acute Distress (just tired appearing) Head Exam: Positive for: ATRAUMATIC, NORMOCEPHALIC Skin: Positive for: Warm, Dry Eye Exam: Positive for: EOMI, PERRL ENT: Positive for: Pharynx Is (clear), Other (dry oral mucus membranes) Neck: Positive for: Painless ROM, Supple Cardiovascular/Chest: Positive for: Regular Rate, Rhythm, Chest Non Tender. Negative for: Edema, Murmur Respiratory: Positive for: Normal Breath Sounds. Negative for: Wheezing Gastrointestinal/Abdominal: Positive for: Soft. Negative for: Tenderness, Distended Back: Positive for: Normal Inspection. Negative for: Muscle Spasm Extremity: Positive for: Normal ROM. Negative for: Deformity Lymphatic: Negative for: Adenopathy Neurologic/Psych: Positive for: Alert. Negative for: Motor/Sensory Deficits - Laboratory Results Result Diagrams: 04/25/18 19:00 04/25/18 19:00 - ECG O2 Sat by Pulse Oximetry: 97 (RA) Pulse Ox Interpretation: Normal Medical Decision Making Medical Decision Making: Time: 1841 Initial Impression: lightheadedness DDx includes but is not limited to: viral syndrome, electrolyte abnormality, anemia, dehydration, Initial Plan: --CMP --EKG --Magnesium / Phosphorus chemistry --U-preg --U-dip --CBC with differential --Zofran 4mg IVP --Accucheck --Lactated Ringers 1000ml IV Labs unremarkable Dw pt findings. Clinical presentation and findings not consistent with acutely emergent condition and pt can follow up with PMD for now. Scribe Attestation: Documented by Manuela Olivares, acting as a scribe for Lisa Reyna MD. Provider Scribe Attestation: All medical record entries made by the Scribe were at my direction and personally dictated by me. I have reviewed the chart and agree that the record accurately reflects my personal performance of the history, physical exam, medical decision making, and the department course for this patient. I have also personally directed, reviewed, and agree with the discharge instructions and disposition. Disposition - Clinical Impression Clinical Impression: Dizziness Counseled Patient/Family Regarding: Studies Performed, Diagnosis, Need For Followup - Disposition Referrals: Shaik Baird MD [Family Provider] - 05/01/18 Disposition: Routine/Home Disposition Time: 20:13 Condition: STABLE Additional Instructions: REST AND DRINK PLENTY OF HYDRATING FLUIDS TAKE A MULTIVITAMIN AND VITAMIN C AND EAT AT LEAST 3 WELL BALANCED MEALS A DAY FOLLOW UP WITH YOUR DOCTOR NEXT WEEK FOR REEVALUATION Instructions: Dizziness, Nonvertigo, (DC) Forms: [facility] ED School/Work Excuse
[2018-04-25 21:14] VITALS: BP 122/74; PULSE 77; TEMP 98.1; O2SAT 99
--- NOTE | 2018-04-26 06:13 | CARD ---
APPROVED REPORT Date of service: 04/25/2018 EKG Measurement Heart [id number] <Conclusion> Normal sinus rhythm Normal ECG
== END 2018-04-25 20:33 | disposition home or self-care (01) ==
LOC: H.ER 17:57
DX: R42 Dizziness and giddiness (principal)
CPT/HCPCS: 80053; 81025; 82948; 83735; 84100; 85025; 93005; 96361; 96374; 99284; J2405; J7120